=== PATIENT | female | born 1950 | race African-American/Black ===

== ENCOUNTER 2018-03-16 15:04 | Inpatient (IN) ==
[2018-03-16] MEDS ORDERED: SODIUM CHLORIDE 0.9% 500 ML IV STA (15:41)
[2018-03-16 15:59] LABS: Basophils % 0.2 % (0.0-0.8); Eosinophils % 0.9 % (0.00-10.9); Hematocrit 42.1 VOL% (35.7-47.0); Hemoglobin 13.9 GM/DL (12.0-16.0); Immature Granulocytes % 0.4 %; Immature Granulocytes Absolute 0.02 #; Lymphocytes # 1.4 10*3/uL (1.4-4.0); Lymphocytes % 31.6 % (21.3-54.2); Mean Corpuscular Hemoglobin 30 PG (27-34); Mean Corpuscular Volume 90.3 FL (87-102); Monocytes # 0.4 10*3/uL (0.11-0.8); Monocytes % 8.6 % (1.7-12.7); Neutrophils # 2.7 10*3/uL (1.4-7.4); Neutrophils % 58.3 % (38.7-73.9); Platelet Count 262 T/CUMM (130-400); Red Blood Count 4.66 MC/CUMM (3.8-5.5); Red Cell Distribution Width 13.5 % (9.3-17.3); White Blood Count 4.6 T/CUMM (4-12)
[2018-03-16 16:23] LABS: Alanine Aminotransferase 15 U/L (13-56); Albumin 3.4 G/DL (3.4-5.0); Alkaline Phosphatase 75 U/L (45-117); Aspartate Amino Transferase 10 U/L (0-37); Bilirubin,Total < 0.39 MG/DL (0.2-1.0); Blood Urea Nitrogen 16 MG/DL (7-18); Calcium 8.6 MG/DL (8.5-10.1); Glucose 246 MG/DL (74-106); Osmolality,Calculated 283.7 MOS/KG (273-304); Potassium 4.2 MMOL/L (3.5-5.1); Sodium 138 MMOL/L (136-145); Total Protein 7.8 G/DL (6.4-8.3)
[2018-03-16 16:40] LABS: Apearance,Urine CLEAR (Clear); Bilirubin,Urine Negative (Negative); Blood, Urine Negative (Negative); Glucose,Urine (UA) >=500 mg/dL (Negative); Ketones,Urine Negative (Negative); Nitrite,Urine Negative (Negative); Protein,Urine Negative; RBC,Urine <1 /HPF (0-4); Urine Color Yellow (Yellow); Urine Specific Gravity 1.006 (1.001-1.035); Urine Urobilinogen < 2.0 EU/DL (0.2-1.0); WBC,Urine <1 /HPF (0-6)
[2018-03-16 16:45] LABS: Barbiturates Screen,Urine Negative (Negative); Benzodiazepines Screen,Urine Negative (Negative); Cannabinoid Screen,Urine Negative (Negative); Opiate Screen,Urine Negative (Negative); Phencyclidine Screen,Urine Negative (Negative)
[2018-03-16] MEDS ORDERED: GLUCAGON 1 MG VIAL IM PRN ×2 (17:32→22:41)
[2018-03-16] MEDS ORDERED: PROMETHAZINE 25 MG/1 ML VIAL IM PRN (17:32)
[2018-03-16] MEDS ORDERED: DEXTROSE 50% 25 GM/50 ML VIAL IV PRN ×2 (17:32→22:41)
[2018-03-16] MEDS ORDERED: CLINDAMYCIN INJ 600 MG in PREMIX 1 EACH IV STA (17:46)
[2018-03-16] MEDS ORDERED: ENOXAPARIN 30 MG/0.3 ML SYRINGE SUBCUT SCH (18:00)
[2018-03-16] MEDS ORDERED: SODIUM CHLORIDE 0.9% 1,000 ML IV SCH (18:00)
[2018-03-16] MEDS ORDERED: INSULIN LISPRO 100 UNIT/ML SUBCUT SCH (21:00)
[2018-03-16] MEDS ORDERED: ONDANSETRON 4 MG/2 ML VIAL IV PRN (22:42)
[2018-03-16] MEDS ORDERED: MAGNESIUM HYDROXIDE SUSP 30 ML UDCUP PO PRN (22:42)
[2018-03-16] MEDS ORDERED: ACETAMINOPHEN 325 MG TABLET PO PRN (22:42)
[2018-03-16] MEDS ORDERED: FUROSEMIDE 20 MG/2 ML VIAL IV ONE (23:15)
[2018-03-17] MEDS: SODIUM CHLORIDE 0.9% 1,000 ML IV SCH ×2 (00:34→15:40)
[2018-03-17 00:46] LABS: Calcium 8.4 MG/DL (8.5-10.1); Osmolality,Calculated 284.8 MOS/KG (273-304); Potassium 3.6 MMOL/L (3.5-5.1)
[2018-03-17] MEDS: FAMOTIDINE 20 MG TABLET PO SCH ×3 (00:46→21:36)
[2018-03-17] MEDS: CLINDAMYCIN INJ 300 MG in PREMIX 1 EACH IV SCH ×5 (00:53→23:53)
[2018-03-17 05:37] LABS: Basophils % 0.2 % (0.0-0.8); Eosinophils % 0.9 % (0.00-10.9); Hematocrit 40.6 VOL% (35.7-47.0); Hemoglobin 13.7 GM/DL (12.0-16.0); Immature Granulocytes % 0.2 %; Immature Granulocytes Absolute 0.01 #; Lymphocytes # 1.1 10*3/uL (1.4-4.0); Lymphocytes % 26.6 % (21.3-54.2); Mean Corpuscular HGB Conc 33.7 GM/DL (32-36); Mean Corpuscular Hemoglobin 30 PG (27-34); Mean Platelet Volume 10.1 FL (9.6-12.0); Monocytes # 0.4 10*3/uL (0.11-0.8); Monocytes % 9.3 % (1.7-12.7); Neutrophils # 2.7 10*3/uL (1.4-7.4); Neutrophils % 62.8 % (38.7-73.9); Platelet Count 244 T/CUMM (130-400); Red Blood Count 4.51 MC/CUMM (3.8-5.5); Red Cell Distribution Width 13.3 % (9.3-17.3); White Blood Count 4.3 T/CUMM (4-12)
[2018-03-17] MEDS: RASAGILINE 0.5 MG TABLET PO SCH (08:32)
[2018-03-17] MEDS: ASPIRIN EC 81 MG TABLET PO SCH (08:33)
[2018-03-17] MEDS: ENTACAPONE 200 MG TABLET PO SCH ×3 (08:33→21:36)
[2018-03-17] MEDS: hydroCHLOROthiazide 12.5 MG CAPSULE PO SCH (08:33)
[2018-03-17] MEDS: INSULIN LISPRO 100 UNIT/ML SUBCUT SCH ×3 (08:33→18:40)
[2018-03-17] MEDS: RIVASTIGMINE 3 MG CAPSULE PO SCH ×2 (08:33→18:40)
[2018-03-17] MEDS: CARBIDOPA/LEVODOPA CR 25-100 MG TABLET PO SCH ×3 (08:33→21:36)
[2018-03-17] MEDS: DOCUSATE SODIUM 100 MG CAPSULE PO SCH ×2 (08:33→21:36)
[2018-03-17] MEDS: INSULIN REGULAR 100 UNIT/ML SUBCUT SCH ×4 (08:34→21:37)
[2018-03-17] MEDS ORDERED: INSULIN GLARGINE 100 UNIT/ML SUBCUT SCH (09:00)
[2018-03-17] MEDS ORDERED: FUROSEMIDE 20 MG/2 ML VIAL IV SCH (09:00)
[2018-03-17] MEDS ORDERED: PANTOPRAZOLE 40 MG TABLET PO SCH (09:00)
[2018-03-17] MEDS: ENOXAPARIN 40 MG/0.4 ML SYRINGE SUBCUT SCH (09:19)
[2018-03-17] MEDS: PIMAVANSERIN TARTRATE 34 MG PO SCH (15:02)
[2018-03-17] MEDS: traMADol 50 MG TABLET PO PRN (21:36)
[2018-03-18] MEDS: SODIUM CHLORIDE 0.9% 1,000 ML IV SCH ×2 (04:44→23:35)
[2018-03-18] MEDS: CLINDAMYCIN INJ 300 MG in PREMIX 1 EACH IV SCH ×4 (05:55→23:36)
[2018-03-18 06:38] LABS: Basophils % 0.5 % (0.0-0.8); Hematocrit 39.2 VOL% (35.7-47.0); Hemoglobin 13.2 GM/DL (12.0-16.0); Immature Granulocytes % 0.3 %; Immature Granulocytes Absolute 0.01 #; Lymphocytes # 1.6 10*3/uL (1.4-4.0); Lymphocytes % 41.1 % (21.3-54.2); Mean Corpuscular HGB Conc 33.7 GM/DL (32-36); Mean Corpuscular Hemoglobin 30 PG (27-34); Mean Corpuscular Volume 88.9 FL (87-102); Mean Platelet Volume 10.1 FL (9.6-12.0); Monocytes # 0.4 10*3/uL (0.11-0.8); Monocytes % 10.3 % (1.7-12.7); Neutrophils # 1.8 10*3/uL (1.4-7.4); Neutrophils % 46.8 % (38.7-73.9); Platelet Count 232 T/CUMM (130-400); Red Blood Count 4.41 MC/CUMM (3.8-5.5); Red Cell Distribution Width 13.5 % (9.3-17.3); White Blood Count 3.9 T/CUMM (4-12)
[2018-03-18 06:50] LABS: Calcium 7.6 MG/DL (8.5-10.1); Osmolality,Calculated 284.8 MOS/KG (273-304); Potassium 3.6 MMOL/L (3.5-5.1)
[2018-03-18] MEDS: INSULIN REGULAR 100 UNIT/ML SUBCUT SCH ×4 (08:15→20:39)
[2018-03-18] MEDS: INSULIN LISPRO 100 UNIT/ML SUBCUT SCH (08:16)
[2018-03-18] MEDS: RIVASTIGMINE 3 MG CAPSULE PO SCH ×2 (08:57→18:37)
[2018-03-18] MEDS: DOCUSATE SODIUM 100 MG CAPSULE PO SCH ×2 (10:38→20:37)
[2018-03-18] MEDS: FAMOTIDINE 20 MG TABLET PO SCH ×2 (10:38→20:37)
[2018-03-18] MEDS: ASPIRIN EC 81 MG TABLET PO SCH (10:38)
[2018-03-18] MEDS: CARBIDOPA/LEVODOPA CR 25-100 MG TABLET PO SCH ×2 (10:39→16:04)
[2018-03-18] MEDS: hydroCHLOROthiazide 12.5 MG CAPSULE PO SCH (10:39)
[2018-03-18] MEDS: ENTACAPONE 200 MG TABLET PO SCH ×3 (10:39→20:38)
[2018-03-18] MEDS: RASAGILINE 0.5 MG TABLET PO SCH (10:39)
[2018-03-18] MEDS: ENOXAPARIN 40 MG/0.4 ML SYRINGE SUBCUT SCH (10:44)
[2018-03-18] MEDS: INSULIN GLARGINE 100 UNIT/ML SUBCUT SCH (11:18)
[2018-03-18] MEDS: PIMAVANSERIN TARTRATE 34 MG PO SCH (15:34)
[2018-03-18] MEDS: CARBIDOPA/LEVODOPA CR 50-200 MG TABLET PO SCH (20:37)
[2018-03-18] MEDS: traMADol 50 MG TABLET PO PRN (20:38)
[2018-03-19] MEDS: CLINDAMYCIN INJ 300 MG in PREMIX 1 EACH IV SCH ×2 (05:13→11:44)
[2018-03-19] MEDS: SODIUM CHLORIDE 0.9% 1,000 ML IV SCH (05:55)
[2018-03-19] MEDS: INSULIN REGULAR 100 UNIT/ML SUBCUT SCH ×2 (07:30→11:44)
[2018-03-19] MEDS: INSULIN GLARGINE 100 UNIT/ML SUBCUT SCH (08:33)
[2018-03-19] MEDS: hydroCHLOROthiazide 12.5 MG CAPSULE PO SCH (08:35)
[2018-03-19] MEDS: RIVASTIGMINE 3 MG CAPSULE PO SCH (08:35)
[2018-03-19] MEDS: RASAGILINE 0.5 MG TABLET PO SCH (08:35)
[2018-03-19] MEDS: DOCUSATE SODIUM 100 MG CAPSULE PO SCH (08:35)
[2018-03-19] MEDS: FAMOTIDINE 20 MG TABLET PO SCH (08:36)
[2018-03-19] MEDS: ENTACAPONE 200 MG TABLET PO SCH (08:37)
[2018-03-19] MEDS: CARBIDOPA/LEVODOPA CR 50-200 MG TABLET PO SCH (08:37)
[2018-03-19] MEDS: ASPIRIN EC 81 MG TABLET PO SCH (08:37)
[2018-03-19] MEDS: ENOXAPARIN 40 MG/0.4 ML SYRINGE SUBCUT SCH ×2 (08:40)
[2018-03-19] MEDS: PIMAVANSERIN TARTRATE 34 MG PO SCH (08:42)
[2018-03-19 13:13] VITALS: BP 145/68
== END 2018-03-19 15:05 | DRG 603 ==
LOC: EDUNIT# → EDBD → N.EDINP 15:04 → N.ED 15:04 → N.3E 19:15
PROVIDERS: ADMIT Internal Medicine; ATTEND Internal Medicine

== ENCOUNTER 2018-05-10 16:14 | Inpatient (IN) ==
[2018-05-10] MEDS ORDERED: SODIUM CHLORIDE 0.9% 1,000 ML IV STA (16:36)
[2018-05-10 17:59] LABS: Basophils % 0.3 % (0.0-0.8); Eosinophils % 0.5 % (0.00-10.9); Hematocrit 41.2 VOL% (35.7-47.0); Hemoglobin 13.7 GM/DL (12.0-16.0); Immature Granulocytes % 0.3 %; Immature Granulocytes Absolute 0.02 #; Lymphocytes # 1.8 10*3/uL (1.4-4.0); Lymphocytes % 30.8 % (21.3-54.2); Mean Corpuscular HGB Conc 33.3 GM/DL (32-36); Mean Corpuscular Hemoglobin 30 PG (27-34); Mean Corpuscular Volume 91.4 FL (87-102); Mean Platelet Volume 10.7 FL (9.6-12.0); Monocytes # 0.4 10*3/uL (0.11-0.8); Monocytes % 6.3 % (1.7-12.7); Neutrophils # 3.5 10*3/uL (1.4-7.4); Neutrophils % 61.8 % (38.7-73.9); Platelet Count 228 T/CUMM (130-400); Red Blood Count 4.51 MC/CUMM (3.8-5.5); Red Cell Distribution Width 13.3 % (9.3-17.3); White Blood Count 5.7 T/CUMM (4-12)
[2018-05-10 18:09] LABS: Ammonia 16 UMOL/L (11-32)
[2018-05-10 18:12] LABS: Apearance,Urine CLEAR (Clear); Bilirubin,Urine Negative (Negative); Blood, Urine Negative (Negative); Glucose,Urine (UA) >=500 mg/dL (Negative); Ketones,Urine 5 mg/dL (Negative); Mucus,Urine Occasional /LPF (Occasional); Nitrite,Urine Negative (Negative); Protein,Urine Negative; RBC,Urine 1 /HPF (0-4); Squamous Epithelial Cell,Urine Occasional /HPF (0-10); Urine Color Yellow (Yellow); Urine Specific Gravity 1.022 (1.001-1.035); Urine Urobilinogen < 2.0 EU/DL (0.2-1.0); WBC,Urine <1 /HPF (0-6)
[2018-05-10 18:22] LABS: Partial Thromboplastin Time 24.3 SECS (0-40)
[2018-05-10 18:30] LABS: Alanine Aminotransferase 14 U/L (13-56); Albumin 3.4 G/DL (3.4-5.0); Alkaline Phosphatase 69 U/L (45-117); Aspartate Amino Transferase 10 U/L (0-37); Blood Urea Nitrogen 11 MG/DL (7-18); Calcium 8.3 MG/DL (8.5-10.1); Glucose 300 MG/DL (74-106); Osmolality,Calculated 288.4 MOS/KG (273-304); Potassium 4.1 MMOL/L (3.5-5.1); Sodium 140 MMOL/L (136-145); Total Protein 7.1 G/DL (6.4-8.3)
[2018-05-10 18:38] LABS: Barbiturates Screen,Urine Negative (Negative); Benzodiazepines Screen,Urine Negative (Negative); Cannabinoid Screen,Urine Negative (Negative); Opiate Screen,Urine Negative (Negative); Phencyclidine Screen,Urine Negative (Negative)
[2018-05-10] MEDS ORDERED: INSULIN REGULAR 100 UNIT/ML IV STA (18:48)
[2018-05-10] MEDS ORDERED: DEXTROSE 50% 25 GM/50 ML VIAL IV PRN (18:55)
[2018-05-10] MEDS ORDERED: ONDANSETRON 4 MG/2 ML VIAL IV PRN (18:55)
[2018-05-10] MEDS ORDERED: GLUCAGON 1 MG VIAL IM PRN (18:55)
[2018-05-10] MEDS: DOCUSATE SODIUM 100 MG CAPSULE PO SCH (21:56)
[2018-05-10] MEDS: SODIUM CHLORIDE 0.45% 1,000 ML IV SCH (21:59)
[2018-05-11] MEDS ORDERED: DEXTROSE 50% 25 GM/50 ML VIAL IV PRN (02:57)
[2018-05-11] MEDS ORDERED: GLUCAGON 1 MG VIAL IM PRN (02:57)
[2018-05-11] MEDS: ALBUTEROL/IPRATROPIUM 3 ML NEB RESP TX SCH ×3 (07:00→19:31)
[2018-05-11 07:44] LABS: Calcium 7.7 MG/DL (8.5-10.1); Osmolality,Calculated 282.8 MOS/KG (273-304); Potassium 3.6 MMOL/L (3.5-5.1)
[2018-05-11] MEDS: DOCUSATE SODIUM 100 MG CAPSULE PO SCH ×2 (09:11→20:49)
[2018-05-11] MEDS: ASPIRIN EC 81 MG TABLET PO SCH (09:11)
[2018-05-11] MEDS: RIVASTIGMINE 3 MG CAPSULE PO SCH ×2 (09:12→17:07)
[2018-05-11] MEDS: PANTOPRAZOLE 40 MG TABLET PO SCH (09:12)
[2018-05-11] MEDS: ENTACAPONE 200 MG TABLET PO SCH ×3 (09:12→20:49)
[2018-05-11] MEDS: INSULIN REGULAR 100 UNIT/ML SUBCUT SCH ×4 (09:38→20:54)
[2018-05-11] MEDS: INSULIN GLARGINE 100 UNIT/ML SUBCUT SCH (10:08)
[2018-05-11] MEDS: SODIUM CHLORIDE 0.45% 1,000 ML IV SCH (11:27)
[2018-05-12] MEDS: ALBUTEROL/IPRATROPIUM 3 ML NEB RESP TX SCH ×4 (00:11→19:16)
[2018-05-12] MEDS: SODIUM CHLORIDE 0.45% 1,000 ML IV SCH ×2 (01:45→21:15)
[2018-05-12] MEDS: RIVASTIGMINE 3 MG CAPSULE PO SCH ×2 (10:01→18:53)
[2018-05-12] MEDS: INSULIN GLARGINE 100 UNIT/ML SUBCUT SCH (10:02)
[2018-05-12] MEDS: PANTOPRAZOLE 40 MG TABLET PO SCH (10:02)
[2018-05-12] MEDS: ENTACAPONE 200 MG TABLET PO SCH ×3 (10:02→22:23)
[2018-05-12] MEDS: DOCUSATE SODIUM 100 MG CAPSULE PO SCH ×2 (10:02→22:23)
[2018-05-12] MEDS: INSULIN REGULAR 100 UNIT/ML SUBCUT SCH ×4 (10:02→21:12)
[2018-05-12] MEDS: ASPIRIN EC 81 MG TABLET PO SCH (10:02)
[2018-05-12] MEDS: POTASSIUM CHLORIDE 10 MEQ TABLET PO SCH (17:37)
[2018-05-12] MEDS ORDERED: SODIUM CHLORIDE 0.9% 1,000 ML IV SCH (20:00)
[2018-05-12 20:23] LABS: Basophils % 0.2 % (0.0-0.8); Eosinophils # 0.1 10*3/uL (0.0-0.87); Eosinophils % 1.2 % (0.00-10.9); Hematocrit 38.3 VOL% (35.7-47.0); Immature Granulocytes % 0.3 %; Immature Granulocytes Absolute 0.02 #; Lymphocytes # 1.5 10*3/uL (1.4-4.0); Lymphocytes % 25.4 % (21.3-54.2); Mean Corpuscular HGB Conc 33.9 GM/DL (32-36); Mean Corpuscular Hemoglobin 30 PG (27-34); Mean Corpuscular Volume 89.3 FL (87-102); Mean Platelet Volume 10.4 FL (9.6-12.0); Monocytes # 0.4 10*3/uL (0.11-0.8); Monocytes % 7.1 % (1.7-12.7); Neutrophils # 3.8 10*3/uL (1.4-7.4); Neutrophils % 65.8 % (38.7-73.9); Platelet Count 217 T/CUMM (130-400); Red Blood Count 4.29 MC/CUMM (3.8-5.5); Red Cell Distribution Width 13.2 % (9.3-17.3); White Blood Count 5.7 T/CUMM (4-12)
[2018-05-12 20:41] LABS: INR 1.1; PT Patient Result 11.1 SECS; Partial Thromboplastin Time 24.8 SECS (0-40)
[2018-05-12 20:52] LABS: Albumin 3.1 G/DL (3.4-5.0); Bilirubin,Total 0.4 MG/DL (0.2-1.0); Calcium 7.9 MG/DL (8.5-10.1); Total Protein 6.5 G/DL (6.4-8.3)
[2018-05-12 20:53] LABS: Osmolality,Calculated 289.4 MOS/KG (273-304); Potassium 4.2 MMOL/L (3.5-5.1)
[2018-05-13] MEDS: ALBUTEROL/IPRATROPIUM 3 ML NEB RESP TX SCH ×4 (00:10→20:33)
[2018-05-13 03:12] LABS: Apearance,Urine Slightly Hazy (Clear); Bilirubin,Urine Negative (Negative); Blood, Urine Negative (Negative); Glucose,Urine (UA) >=500 mg/dL (Negative); Ketones,Urine Negative (Negative); Nitrite,Urine Negative (Negative); Protein,Urine Negative; RBC,Urine 2 /HPF (0-4); Squamous Epithelial Cell,Urine Occasional /HPF (0-10); Urine Color Yellow (Yellow); Urine Specific Gravity 1.013 (1.001-1.035); Urine Urobilinogen < 2.0 EU/DL (0.2-1.0); WBC,Urine 15 /HPF (0-6)
[2018-05-13] MEDS: traMADol 50 MG TABLET PO PRN (07:40)
[2018-05-13] MEDS: RIVASTIGMINE 3 MG CAPSULE PO SCH ×2 (09:24→17:39)
[2018-05-13] MEDS: PANTOPRAZOLE 40 MG TABLET PO SCH (09:24)
[2018-05-13] MEDS: ACETAMINOPHEN 325 MG TABLET PO PRN (09:25)
[2018-05-13] MEDS: DOCUSATE SODIUM 100 MG CAPSULE PO SCH ×2 (09:25→20:45)
[2018-05-13] MEDS: ENTACAPONE 200 MG TABLET PO SCH ×3 (09:25→20:45)
[2018-05-13] MEDS: ASPIRIN EC 81 MG TABLET PO SCH (09:25)
[2018-05-13] MEDS: POTASSIUM CHLORIDE 10 MEQ TABLET PO SCH (09:25)
[2018-05-13] MEDS: INSULIN GLARGINE 100 UNIT/ML SUBCUT SCH (09:26)
[2018-05-13] MEDS: INSULIN REGULAR 100 UNIT/ML SUBCUT SCH ×4 (10:46→20:45)
[2018-05-13] MEDS: SODIUM CHLORIDE 0.45% 1,000 ML IV SCH (11:04)
[2018-05-14] MEDS: ALBUTEROL/IPRATROPIUM 3 ML NEB RESP TX SCH ×4 (00:30→19:30)
[2018-05-14] MEDS: ACETAMINOPHEN 325 MG TABLET PO PRN (00:51)
[2018-05-14] MEDS: traMADol 50 MG TABLET PO PRN (03:46)
[2018-05-14] MEDS: INSULIN REGULAR 100 UNIT/ML SUBCUT SCH ×4 (09:25→20:49)
[2018-05-14] MEDS: RIVASTIGMINE 3 MG CAPSULE PO SCH ×2 (09:39→18:10)
[2018-05-14] MEDS: PANTOPRAZOLE 40 MG TABLET PO SCH (09:39)
[2018-05-14] MEDS: ASPIRIN EC 81 MG TABLET PO SCH (09:40)
[2018-05-14] MEDS: DOCUSATE SODIUM 100 MG CAPSULE PO SCH ×2 (09:40→20:50)
[2018-05-14] MEDS: ENTACAPONE 200 MG TABLET PO SCH ×3 (09:41→20:50)
[2018-05-14] MEDS: POTASSIUM CHLORIDE 10 MEQ TABLET PO SCH (09:41)
[2018-05-14] MEDS: INSULIN GLARGINE 100 UNIT/ML SUBCUT SCH (09:43)
[2018-05-15] MEDS: ALBUTEROL/IPRATROPIUM 3 ML NEB RESP TX SCH ×2 (01:30→07:15)
[2018-05-15] MEDS: INSULIN REGULAR 100 UNIT/ML SUBCUT SCH ×2 (08:05→12:32)
[2018-05-15] MEDS: PANTOPRAZOLE 40 MG TABLET PO SCH (08:32)
[2018-05-15] MEDS: POTASSIUM CHLORIDE 10 MEQ TABLET PO SCH (08:32)
[2018-05-15] MEDS: INSULIN GLARGINE 100 UNIT/ML SUBCUT SCH (08:32)
[2018-05-15] MEDS: ASPIRIN EC 81 MG TABLET PO SCH (08:32)
[2018-05-15] MEDS: DOCUSATE SODIUM 100 MG CAPSULE PO SCH (08:32)
[2018-05-15] MEDS: RIVASTIGMINE 3 MG CAPSULE PO SCH (08:32)
[2018-05-15] MEDS: ENTACAPONE 200 MG TABLET PO SCH (08:32)
[2018-05-15 12:36] VITALS: BP 133/61
== END 2018-05-15 14:40 | disposition home health service (06) | DRG 638 ==
LOC: EDBD → EDUNIT# → N.ED 16:14 → N.EDINP 18:55 → N.4E 20:17
PROVIDERS: ADMIT Internal Medicine; ATTEND Internal Medicine

== ENCOUNTER 2019-10-07 19:00 | Inpatient (IN) ==
[2019-10-07 20:03] LABS: Basophils % 0.2 % (0.0-0.8); Eosinophils % 0.3 % (0.00-10.9); Hematocrit 40.8 VOL% (35.7-47.0); Hemoglobin 13.5 GM/DL (12.0-16.0); Immature Granulocytes % 0.5 %; Immature Granulocytes Absolute 0.03 #; Lymphocytes # 1.4 10*3/uL (1.4-4.0); Lymphocytes % 22.3 % (21.3-54.2); Mean Corpuscular HGB Conc 33.1 GM/DL (32-36); Mean Corpuscular Volume 92.7 FL (87-102); Mean Platelet Volume 10.3 FL (9.6-12.0); Monocytes % 5.6 % (1.7-12.7); Neutrophils % 71.1 % (38.7-73.9); Platelet Count 216 T/CUMM (130-400); Red Cell Distribution Width 12.9 % (9.3-17.3); White Blood Count 6.5 T/CUMM (4-12)
[2019-10-07 20:15] LABS: INR 1.1; PT Patient Result 11.7 SECS (9.6-12.2)
[2019-10-07 20:24] LABS: Alanine Aminotransferase 13 U/L (13-56); Albumin 3.7 G/DL (3.4-5.0); Alkaline Phosphatase 63 U/L (45-117); Aspartate Amino Transferase 20 U/L (0-37); Blood Urea Nitrogen 14 MG/DL (7-18); Calcium 8.5 MG/DL (8.5-10.1); Estimated Glom Filtration Rate 75 ML/MIN; Glucose 204 MG/DL (74-106); Osmolality,Calculated 287.3 MOS/KG (273-304); Total Protein 7.2 G/DL (6.4-8.3); Troponin I < 0.015 NG/ML (0.00-0.045)
[2019-10-07 20:26] LABS: Apearance,Urine CLEAR (Clear); Bilirubin,Urine Negative (Negative); Blood, Urine Negative (Negative); Glucose,Urine (UA) 150 mg/dL (Negative); Ketones,Urine 5 mg/dL (Negative); Mucus,Urine Occasional /LPF (Occasional); Nitrite,Urine Negative (Negative); Protein,Urine Negative; RBC,Urine 1 /HPF (0-4); Squamous Epithelial Cell,Urine Occasional /HPF (0-10); Urine Color Amber (Yellow); Urine Specific Gravity 1.016 (1.001-1.035); Urine Urobilinogen < 2.0 EU/DL (0.2-1.0); WBC,Urine 3 /HPF (0-6)
[2019-10-07 20:30] LABS: Barbiturates Screen,Urine Negative (Negative); Benzodiazepines Screen,Urine Negative (Negative); Cannabinoid Screen,Urine Negative (Negative); Opiate Screen,Urine Negative (Negative); Phencyclidine Screen,Urine Negative (Negative)
[2019-10-07] MEDS ORDERED: ONDANSETRON 4 MG/2 ML VIAL IV PRN (20:40)
[2019-10-07] MEDS ORDERED: ACETAMINOPHEN 325 MG TABLET PO PRN (20:40)
[2019-10-07] MEDS ORDERED: PROMETHAZINE 25 MG/1 ML VIAL IM PRN (20:40)
[2019-10-07] MEDS: DOCUSATE SODIUM 100 MG CAPSULE PO SCH (23:47)
[2019-10-08 06:11] LABS: Basophils % 0.2 % (0.0-0.8); Eosinophils % 0.7 % (0.00-10.9); Hematocrit 39.9 VOL% (35.7-47.0); Hemoglobin 13.2 GM/DL (12.0-16.0); Immature Granulocytes % 0.2 %; Immature Granulocytes Absolute 0.01 #; Lymphocytes # 1.5 10*3/uL (1.4-4.0); Lymphocytes % 33.3 % (21.3-54.2); Mean Corpuscular HGB Conc 33.1 GM/DL (32-36); Mean Corpuscular Volume 91.7 FL (87-102); Monocytes % 8.3 % (1.7-12.7); Neutrophils % 57.3 % (38.7-73.9); Platelet Count 222 T/CUMM (130-400); Red Blood Count 4.35 MC/CUMM (3.8-5.5); Red Cell Distribution Width 12.8 % (9.3-17.3); White Blood Count 4.4 T/CUMM (4-12)
[2019-10-08 06:46] LABS: Albumin 3.4 G/DL (3.4-5.0); Bilirubin,Total 1.5 MG/DL (0.2-1.0); Calcium 8.3 MG/DL (8.5-10.1); Total Protein 6.9 G/DL (6.4-8.3)
[2019-10-08] MEDS: PANTOPRAZOLE 40 MG TABLET PO SCH (08:29)
[2019-10-08] MEDS: DOCUSATE SODIUM 100 MG CAPSULE PO SCH ×2 (08:29→22:00)
[2019-10-08] MEDS ORDERED: POLYETHYLENE GLYCOL POWDER 17 GM PACK PO PRN (16:59)
[2019-10-08] MEDS ORDERED: DEXTROSE 10% 25 GM/250 ML BAG IV PRN (17:03)
[2019-10-08] MEDS: CARBIDOPA/LEVODOPA 25-100 MG TABLET PO SCH ×2 (17:56→21:59)
[2019-10-08] MEDS: INSULIN LISPRO 100 UNIT/ML SUBCUT SCH (17:57)
[2019-10-08] MEDS ORDERED: HALOPERIDOL 5 MG/ML AMP IV PRN (18:16)
[2019-10-08] MEDS: ENTACAPONE 200 MG TABLET PO SCH (21:59)
[2019-10-08] MEDS: APIXABAN 5 MG TABLET PO SCH (21:59)
[2019-10-08] MEDS: RIVASTIGMINE 3 MG CAPSULE PO SCH (21:59)
[2019-10-08] MEDS: ATORVASTATIN 40 MG TABLET PO SCH (21:59)
[2019-10-08] MEDS: MEMANTINE 10 MG TABLET PO SCH (21:59)
[2019-10-08] MEDS: ARIPiprazole 5 MG TABLET PO SCH (21:59)
[2019-10-08] MEDS: LORazepam 2 MG/1 ML VIAL IM PRN (22:02)
[2019-10-09] MEDS: INSULIN REGULAR 100 UNIT/ML SUBCUT SCH ×5 (00:57→23:05)
[2019-10-09] MEDS: CARBIDOPA/LEVODOPA 25-100 MG TABLET PO SCH ×5 (05:33→23:36)
[2019-10-09] MEDS: INSULIN LISPRO 100 UNIT/ML SUBCUT SCH ×3 (09:04→17:18)
[2019-10-09] MEDS: ARIPiprazole 5 MG TABLET PO SCH ×2 (09:07→22:08)
[2019-10-09] MEDS: RASAGILINE 0.5 MG TABLET PO SCH (09:08)
[2019-10-09] MEDS: ENTACAPONE 200 MG TABLET PO SCH ×3 (09:08→22:12)
[2019-10-09] MEDS: LOSARTAN 25 MG TABLET PO SCH (09:08)
[2019-10-09] MEDS: RIVASTIGMINE 3 MG CAPSULE PO SCH ×2 (09:08→22:07)
[2019-10-09] MEDS: ASPIRIN EC 81 MG TABLET PO SCH (09:08)
[2019-10-09] MEDS: DOCUSATE SODIUM 100 MG CAPSULE PO SCH ×2 (09:08→22:08)
[2019-10-09] MEDS: APIXABAN 5 MG TABLET PO SCH ×2 (09:08→22:08)
[2019-10-09] MEDS: POTASSIUM CHLORIDE 10 MEQ TABLET PO SCH (09:08)
[2019-10-09] MEDS: PANTOPRAZOLE 40 MG TABLET PO SCH (09:09)
[2019-10-09] MEDS: INSULIN GLARGINE 100 UNIT/ML SUBCUT SCH (09:09)
[2019-10-09] MEDS ORDERED: HALOPERIDOL 5 MG/ML AMP IV PRN (11:24)
[2019-10-09] MEDS: ATORVASTATIN 40 MG TABLET PO SCH (22:08)
[2019-10-09] MEDS: MEMANTINE 10 MG TABLET PO SCH (22:08)
[2019-10-10 05:05] LABS: Basophils % 0.2 % (0.0-0.8); Eosinophils % 0.9 % (0.00-10.9); Hematocrit 38.9 VOL% (35.7-47.0); Hemoglobin 12.9 GM/DL (12.0-16.0); Immature Granulocytes % 0.5 %; Immature Granulocytes Absolute 0.02 #; Lymphocytes # 1.3 10*3/uL (1.4-4.0); Lymphocytes % 30.5 % (21.3-54.2); Mean Corpuscular HGB Conc 33.2 GM/DL (32-36); Mean Corpuscular Volume 91.5 FL (87-102); Mean Platelet Volume 10.2 FL (9.6-12.0); Monocytes % 8.5 % (1.7-12.7); Neutrophils % 59.4 % (38.7-73.9); Platelet Count 211 T/CUMM (130-400); Red Blood Count 4.25 MC/CUMM (3.8-5.5); Red Cell Distribution Width 12.8 % (9.3-17.3); White Blood Count 4.3 T/CUMM (4-12)
[2019-10-10 05:24] LABS: Calcium 8.1 MG/DL (8.5-10.1); Osmolality,Calculated 282.5 MOS/KG (273-304)
[2019-10-10] MEDS: CARBIDOPA/LEVODOPA 25-100 MG TABLET PO SCH ×5 (06:47→21:44)
[2019-10-10] MEDS ORDERED: INFLUENZA VIRUS VACCINE 0.5 ML SYRINGE IM ONE (07:22)
[2019-10-10] MEDS: PANTOPRAZOLE 40 MG TABLET PO SCH (09:34)
[2019-10-10] MEDS: RIVASTIGMINE 3 MG CAPSULE PO SCH (09:34)
[2019-10-10] MEDS: DOCUSATE SODIUM 100 MG CAPSULE PO SCH ×2 (09:34→21:24)
[2019-10-10] MEDS: POTASSIUM CHLORIDE 10 MEQ TABLET PO SCH (09:34)
[2019-10-10] MEDS: RASAGILINE 0.5 MG TABLET PO SCH (09:34)
[2019-10-10] MEDS: LOSARTAN 25 MG TABLET PO SCH (09:34)
[2019-10-10] MEDS: ARIPiprazole 5 MG TABLET PO SCH ×2 (09:34→21:24)
[2019-10-10] MEDS: ASPIRIN EC 81 MG TABLET PO SCH (09:34)
[2019-10-10] MEDS: APIXABAN 5 MG TABLET PO SCH ×2 (09:34→21:25)
[2019-10-10] MEDS: INSULIN LISPRO 100 UNIT/ML SUBCUT SCH ×3 (09:34→17:14)
[2019-10-10] MEDS: ENTACAPONE 200 MG TABLET PO SCH ×4 (09:34→21:29)
[2019-10-10] MEDS: INSULIN GLARGINE 100 UNIT/ML SUBCUT SCH (09:35)
[2019-10-10] MEDS: INSULIN REGULAR 100 UNIT/ML SUBCUT SCH ×4 (09:41→21:25)
[2019-10-10] MEDS: ATORVASTATIN 40 MG TABLET PO SCH (21:25)
[2019-10-10] MEDS: MEMANTINE 10 MG TABLET PO SCH (21:25)
[2019-10-11] MEDS: CARBIDOPA/LEVODOPA 25-100 MG TABLET PO SCH ×5 (06:06→22:25)
[2019-10-11] MEDS: ENTACAPONE 200 MG TABLET PO SCH ×5 (07:59→22:25)
[2019-10-11] MEDS: RASAGILINE 0.5 MG TABLET PO SCH (08:00)
[2019-10-11] MEDS: RIVASTIGMINE 1.5 MG CAPSULE PO SCH ×2 (08:00→16:58)
[2019-10-11] MEDS: APIXABAN 5 MG TABLET PO SCH ×2 (08:02→20:56)
[2019-10-11] MEDS: ARIPiprazole 5 MG TABLET PO SCH ×2 (08:02→20:56)
[2019-10-11] MEDS: LOSARTAN 25 MG TABLET PO SCH (08:02)
[2019-10-11] MEDS: DOCUSATE SODIUM 100 MG CAPSULE PO SCH ×2 (08:02→20:56)
[2019-10-11] MEDS: ASPIRIN EC 81 MG TABLET PO SCH (08:02)
[2019-10-11] MEDS: POTASSIUM CHLORIDE 10 MEQ TABLET PO SCH (08:02)
[2019-10-11] MEDS: PANTOPRAZOLE 40 MG TABLET PO SCH (08:03)
[2019-10-11] MEDS: INSULIN LISPRO 100 UNIT/ML SUBCUT SCH ×3 (08:03→16:57)
[2019-10-11] MEDS: INSULIN GLARGINE 100 UNIT/ML SUBCUT SCH (08:03)
[2019-10-11] MEDS: INSULIN REGULAR 100 UNIT/ML SUBCUT SCH ×4 (08:14→20:58)
[2019-10-11] MEDS: LORazepam 2 MG/1 ML VIAL IM PRN ×2 (09:59→18:38)
[2019-10-11] MEDS: GLUCAGON 1 MG VIAL IM PRN (16:40)
[2019-10-11] MEDS: ATORVASTATIN 40 MG TABLET PO SCH (20:56)
[2019-10-11] MEDS: MEMANTINE 10 MG TABLET PO SCH (20:58)
[2019-10-12] MEDS: GLUCAGON 1 MG VIAL IM PRN (07:19)
[2019-10-12] MEDS: CARBIDOPA/LEVODOPA 25-100 MG TABLET PO SCH ×5 (07:30→21:57)
[2019-10-12] MEDS: ENTACAPONE 200 MG TABLET PO SCH ×5 (07:31→21:58)
[2019-10-12] MEDS ORDERED: DEXTROSE 10% 250 ML IV ONE (07:43)
[2019-10-12 08:54] LABS: Basophils % 0.3 % (0.0-0.8); Eosinophils # 0.1 10*3/uL (0.0-0.87); Eosinophils % 0.9 % (0.00-10.9); Hematocrit 45.6 VOL% (35.7-47.0); Immature Granulocytes % 0.3 %; Immature Granulocytes Absolute 0.02 #; Lymphocytes # 1.3 10*3/uL (1.4-4.0); Lymphocytes % 18.9 % (21.3-54.2); Mean Corpuscular HGB Conc 32.9 GM/DL (32-36); Mean Corpuscular Volume 92.5 FL (87-102); Mean Platelet Volume 10.6 FL (9.6-12.0); Monocytes % 5.9 % (1.7-12.7); Neutrophils % 73.7 % (38.7-73.9); Platelet Count 177 T/CUMM (130-400); Red Blood Count 4.93 MC/CUMM (3.8-5.5); Red Cell Distribution Width 13.1 % (9.3-17.3); White Blood Count 6.6 T/CUMM (4-12)
[2019-10-12 09:13] LABS: Hypochromasia 1+; Platelet Estimate Adequate
[2019-10-12 09:19] LABS: Calcium 8.8 MG/DL (8.5-10.1); Osmolality,Calculated 274.8 MOS/KG (273-304)
[2019-10-12] MEDS: RIVASTIGMINE 1.5 MG CAPSULE PO SCH ×2 (10:32→18:00)
[2019-10-12] MEDS: INSULIN REGULAR 100 UNIT/ML SUBCUT SCH ×5 (10:32→21:58)
[2019-10-12] MEDS: POTASSIUM CHLORIDE 10 MEQ TABLET PO SCH (10:33)
[2019-10-12] MEDS: RASAGILINE 0.5 MG TABLET PO SCH (10:34)
[2019-10-12] MEDS: LOSARTAN 25 MG TABLET PO SCH (10:42)
[2019-10-12] MEDS: ASPIRIN EC 81 MG TABLET PO SCH (10:42)
[2019-10-12] MEDS: APIXABAN 5 MG TABLET PO SCH ×2 (10:42→21:57)
[2019-10-12] MEDS: DOCUSATE SODIUM 100 MG CAPSULE PO SCH ×2 (10:43→21:57)
[2019-10-12] MEDS: ARIPiprazole 5 MG TABLET PO SCH ×2 (10:43→21:57)
[2019-10-12] MEDS: PANTOPRAZOLE 40 MG TABLET PO SCH (10:43)
[2019-10-12] MEDS: INSULIN GLARGINE 100 UNIT/ML SUBCUT SCH (10:50)
[2019-10-12] MEDS: INSULIN LISPRO 100 UNIT/ML SUBCUT SCH ×4 (10:50→18:04)
[2019-10-12] MEDS ORDERED: TUBERCULIN SKIN TEST 0.1 ML SYRINGE INTRADERM ONE (13:14)
[2019-10-12] MEDS: MEMANTINE 10 MG TABLET PO SCH (21:57)
[2019-10-12] MEDS: ATORVASTATIN 40 MG TABLET PO SCH (21:57)
[2019-10-13] MEDS: CARBIDOPA/LEVODOPA 25-100 MG TABLET PO SCH ×5 (05:41→22:08)
[2019-10-13] MEDS: ENTACAPONE 200 MG TABLET PO SCH ×5 (05:41→22:08)
[2019-10-13] MEDS: PANTOPRAZOLE 40 MG TABLET PO SCH (08:59)
[2019-10-13] MEDS: POTASSIUM CHLORIDE 10 MEQ TABLET PO SCH (08:59)
[2019-10-13] MEDS: RASAGILINE 0.5 MG TABLET PO SCH (08:59)
[2019-10-13] MEDS: ASPIRIN EC 81 MG TABLET PO SCH (08:59)
[2019-10-13] MEDS: INSULIN LISPRO 100 UNIT/ML SUBCUT SCH ×3 (09:00→16:21)
[2019-10-13] MEDS: INSULIN GLARGINE 100 UNIT/ML SUBCUT SCH (09:00)
[2019-10-13] MEDS: ARIPiprazole 5 MG TABLET PO SCH ×2 (09:00→22:08)
[2019-10-13] MEDS: INSULIN REGULAR 100 UNIT/ML SUBCUT SCH ×4 (09:01→22:07)
[2019-10-13] MEDS: LOSARTAN 25 MG TABLET PO SCH (09:01)
[2019-10-13] MEDS: RIVASTIGMINE 1.5 MG CAPSULE PO SCH ×2 (09:04→18:14)
[2019-10-13] MEDS: DOCUSATE SODIUM 100 MG CAPSULE PO SCH ×2 (09:04→22:08)
[2019-10-13] MEDS: APIXABAN 5 MG TABLET PO SCH ×2 (09:04→22:08)
[2019-10-13] MEDS: MEMANTINE 10 MG TABLET PO SCH (22:08)
[2019-10-13] MEDS: ATORVASTATIN 40 MG TABLET PO SCH (22:08)
[2019-10-14] MEDS: ENTACAPONE 200 MG TABLET PO SCH ×2 (05:38→11:37)
[2019-10-14] MEDS: CARBIDOPA/LEVODOPA 25-100 MG TABLET PO SCH ×2 (05:39→11:45)
[2019-10-14] MEDS: INSULIN REGULAR 100 UNIT/ML SUBCUT SCH ×2 (08:53→11:37)
[2019-10-14] MEDS: LOSARTAN 25 MG TABLET PO SCH (08:55)
[2019-10-14] MEDS: POTASSIUM CHLORIDE 10 MEQ TABLET PO SCH (08:55)
[2019-10-14] MEDS: ARIPiprazole 5 MG TABLET PO SCH (08:55)
[2019-10-14] MEDS: ASPIRIN EC 81 MG TABLET PO SCH (08:55)
[2019-10-14] MEDS: DOCUSATE SODIUM 100 MG CAPSULE PO SCH (08:55)
[2019-10-14] MEDS: RASAGILINE 0.5 MG TABLET PO SCH (08:55)
[2019-10-14] MEDS: APIXABAN 5 MG TABLET PO SCH (08:55)
[2019-10-14] MEDS: PANTOPRAZOLE 40 MG TABLET PO SCH (08:55)
[2019-10-14] MEDS: INSULIN GLARGINE 100 UNIT/ML SUBCUT SCH (08:56)
[2019-10-14] MEDS: INSULIN LISPRO 100 UNIT/ML SUBCUT SCH (08:56)
[2019-10-14] MEDS: RIVASTIGMINE 1.5 MG CAPSULE PO SCH (08:59)
[2019-10-14 12:28] VITALS: BP 157/85
== END 2019-10-14 12:30 | disposition home health service (06) | DRG 57 ==
LOC: EDUNIT# → EDBD → N.ED 19:00 → N.EDINP 19:00 → N.4E 22:31
PROVIDERS: ADMIT Internal Medicine; ATTEND Internal Medicine